=== PATIENT | male | born 1950 | race Caucasian/White ===

== ENCOUNTER 2024-12-22 08:58 | Day surgery (SDC) | payer MEDICARE, SELFPAY ==
--- OUTSIDE RECORDS SUMMARY | 2024-12-08 20:36 | XMS_ITS | Continuity of Care Document ---
Author Organization [facility] Address [address] [place] [address] Phone Care Team Providers Care Per Diem Physical Therapist Assistant Name Role Phone Yessenia Bayron DO Primary Care Provider Bayron Casas DO Attending Provider Zhen Vaz MD Attending Provider [phone] Care Teams Patient Care Team Team Status: Active Member Role Status Dates Zhen Vaz MD Specialist Active Bayron Casas DO Primary Care Provider Active Visit Care Team Team Status: Inactive Member Role Status Dates Bayron Casas DO Primary Care Provider Active Sta rt: October 06, 2024 End: October 06, 2024 Bayron Casas DO Attending Provider Active Start: October 06, 2024 End: October 06, 2024 Visit Care Team Team Status: Inactive Member Role Status Jj Casas DO Primary Care Provider Active Sta rt: October 13, 2024 End: October 13, 2024 Bayron Casas DO Attending Provider Active Start: October 13, 2024 End: October 13, 2024 Patient Care Team Team Status: Inactive Member Role Status Jj Casas DO Primary Care Provider Active Sta rt: December 08, 2024 End: December 08, 2024 Zhen Vaz MD Attending Provider Active St art: December 08, 2024 End: December 08, 2024 Chief Complaint and Reason for Visit Chief Complaint Admit Date Z12.5 I10 R73.9 E78.5 October 06, 2024 6:2 8am medicare wellness October 13, 2024 7:48a m R97.20 N42.32 N42.31 December 08, 2024 2:1 7pm Reason for Visit Admit Date Diabetes October 13, 2024 7:48a m Hyperlipidemia October 13, 2024 7:48a m Hypertension October 13, 2024 7:48a m Medicare annual wellness visit, subseque nt October 13, 2024 7:48am Screening for prostate cancer October 13, 2024 7:48am Allergies, Adverse Reactions, Alerts Allergen Type Severity Reaction Last Updated Verified Status No Known Allergies Allergy Unknown October 13, 2024 8:15am Yes Active Social History Smoking Status Status Start Date End Date Date of Observa tion Never smoked tobacco (finding) October 13, 2024 8:05am Observation Status Observation Response Date of Response Legal Sex Male (finding) Sex Assigned At Male 1950 Family History Relationship Condition Age at Onset Recorded Date/T chuy father Malignant neoplasm Unknown Unknown mother Unknown Problems Active Problems Medical Problem Onset Date Status Effusion, right knee Unknown Active Elevated PSA Unknown Active Medicare annual wellness visit, subsequent Unkno wn Active Screening for prostate cancer Unknown Ac tive Open wound of left hand Unknown Active Primary osteoarthritis of right knee Unknown Active Right knee buckling Unknown Active Diabetes Unknown Active Actinic keratosis Unknown Active Hyperglycemia Unknown Active Hyperlipidemia Unknown Active Right knee pain Unknown Active Osteoarthritis of left knee Unknown Acti ve Osteoarthritis of right knee Unknown Act marge Hypertension Unknown Active Inactive/Resolved Problems Medical Problem Onset Date Status Avulsion of finger tip Unknown Resolved Medications Medication Status Dose Units Route Directions Qty Days St art Date Stop Date End Date Instructions Adherence Amlodipine 5 mg tablet Discont inued 5 MG PO Daily 90 Decemb er 2023 2:16pm October 13, 2024 8:53a m Amlodipine 5 mg tablet Discont inued 5 MG PO Daily 2023 1:00am Dece isha 2023 2:21p m Oxycodone-A cetaminophe n (Percocet) 5-325 mg tablet Discont inued 1 TAB PO Every 8 hours as needed for pain 7 2 2023 2:38p m Ibuprofen 200 mg tablet Active 400 MG PO Every 6 hours as needed Mayuar y 2024 1:00am Unknown Amlodipine 5 mg tablet Active 5 MG PO Daily 90 October 13, 2024 8:52am Unknown Meloxicam 15 mg tablet Discont inued 15 MG PO daily 30 30 2025 1:00am October 13, 2024 8:16a m Diclofenac Sodium 1 % gel Active 2 GM TOPICA L .4-5 times a day as needed for knee pain 2024 1:00am Unknown Immunizations Immunization Event Date Not Given Reason Dose Number Nursing Faculty Lot Number Vaccine Information Statement (VIS) Detail Administration Location COVID-19 mRNA, Comirnaty (Pfizer) July 11, 2020 COVID-19 mRNA, Comirnaty (Pfizer) August 01, 2020 COVID-19 mRNA, Comirnaty (Pfizer) March 19, 2021 COVID-19 mRNA Bivalent Booster (Pfizer) February 26, 2022 COVID-19 (3DMGAME) [id number] 12Y and older May 20, 2023 Fluzone QIV High-Dose 65YR+ March 24, 2020 Fluzone QIV High-Dose 65YR+ May 20, 2023 Influenza vaccine, quadrivalent, adjuvanted April 18, 2021 Influenza vaccine, quadrivalent, adjuvanted March 11, 2022 Pneumococcal Conjugate Vaccine, 13 valent March 24, 2020 Pneumococcal Conjugate Vaccine, 13 valent April 11, 2019 Patient Refused Pneumococcal Polysacc. Vaccine, 23 valent April 11, 2019 Patient Refused Tetanus, Diphtheria, Pertussis (Tdap) June 27, 2023 [id number] [facility] Trivalent Influenza Vaccine March 24, 2020 Trivalent Influenza Vaccine April 18, 2021 Trivalent Influenza Vaccine March 11, 2022 Trivalent Influenza Vaccine April 11, 2019 Patient Refused Procedures Procedure Date Performed Status MR prostate wo/w con December 08, 2024 2:19pm acti ve Relevant Diagnostic Tests and/or Laboratory Data Laboratory Results Test Collection Date/Time Result Date/Time Result Interpretation Reference Range Result Comment Performing Site Corrected White Blood Count October 06, 2024 6:30am October 06, 2024 4:10pm 6.3 10*3/uL 4.1-10.5 [facility] [id number] [address] [facility] [address] Uncorrect ed WBC Count October 06, 2024 6:30am October 06, 2024 4:10pm 6.3 10*3/uL 4.1-10.5 [facility] [id number] [address] [facility] [address] Red Blood Count October 06, 2024 6:30am October 06, 2024 4:10pm 4.89 10*6/uL 3.90-5.60 [facility] [id number] [address] [facility] [address] Hemoglobi n October 06, 2024 6:30am October 06, 2024 4:10pm 15.4 g/dL 13.0-17.0 [facility] [id number] [address] [facility] [address] Hematocri t October 06, 2024 6:30am October 06, 2024 4:10pm 44.5 % 38.8-50.0 [facility] [id number] [address] [facility] [address] Mean Corpuscul ar Volume October 06, 2024 6:30am October 06, 2024 4:10pm 91.0 fL 83.5-101 [facility] [id number] [address] [id number] Mean Corpuscul ar Hemoglobi n October 06, 2024 6:30am October 06, 2024 4:10pm 31.5 pg 27.5-35.2 [facility] [id number] [address] [facility] [address] Mean Corpuscul ar Hemoglobi n Concent October 06, 2024 6:30am October 06, 2024 4:10pm 34.7 g/dL 32.5-35.6 [facility] [id number] [address] [facility] [address] Red Cell Distribut ion Width October 06, 2024 6:30am October 06, 2024 4:10pm 13.8 % 12.0-14.8 [facility] [id number] [address] [facility] [address] Platelet Count October 06, 2024 6:30am October 06, 2024 4:10pm 182 10*3/uL 150-450 [facility] [id number] [address] [facility] [address] Mean Platelet Volume October 06, 2024 6:30am October 06, 2024 4:10pm 9.6 fL 6.6-10.1 [facility] [id number] [address] [facility] [address] Neutrophi ls (%) (Auto) October 06, 2024 6:30am October 06, 2024 5:03pm N/A [facility] [id number] [address] [facility] [address] Lymphocyt es (%) (Auto) October 06, 2024 6:30am October 06, 2024 5:03pm N/A [facility] [id number] [address] [facility] [address] Monocytes (%) (Auto) October 06, 2024 6:30am October 06, 2024 5:03pm N/A [facility] [id number] [address] [facility] [address] Eosinophi ls (%) (Auto) October 06, 2024 6:30am October 06, 2024 5:03pm N/A [facility] [id number] [address] [facility] [address] Basophils (%) (Auto) October 06, 2024 6:30am October 06, 2024 5:03pm N/A [facility] [id number] [address] [facility] [address] Nucleated RBC Relative Count (auto) October 06, 2024 6:30am October 06, 2024 5:03pm N/A [facility] [id number] [address] [facility] [address] Neutrophi ls # (Auto) October 06, 2024 6:30am October 06, 2024 5:03pm N/A [facility] [id number] [address] [facility] [address] Lymphocyt es # (Auto) October 06, 2024 6:30am October 06, 2024 5:03pm N/A [facility] [id number] [address] [facility] [address] Monocytes # (Auto) October 06, 2024 6:30am October 06, 2024 5:03pm N/A [facility] [id number] [address] [facility] [address] Eosinophi ls # (Auto) October 06, 2024 6:30am October 06, 2024 5:03pm N/A [facility] [id number] [address] [facility] [address] Basophils # (Auto) October 06, 2024 6:30am October 06, 2024 5:03pm N/A [facility] [id number] [address] [facility] [address] Segmented Neutrophi ls October 06, 2024 6:30am October 06, 2024 5:03pm 56 % 50-70 [facility] [id number] [address] [facility] [address] Lymphocyt es % October 06, 2024 6:30am October 06, 2024 5:03pm 30 % 18-42 [facility] [id number] [address] [facility] [address] Monocytes % October 06, 2024 6:30am October 06, 2024 5:03pm 8 % 2-11 [facility] [id number] [address] [place] [address] Eosinophi ls % October 06, 2024 6:30am October 06, 2024 5:03pm 6 % Above high normal 1-3 [facility] [id number] [address] [facility] [address] Metamyelo cytes % October 06, 2024 6:30am October 06, 2024 5:03pm 1 % Above high normal 0-0 [facility] [id number] [address] [place] [address] Red Blood Cell Morpholog y October 06, 2024 6:30am October 06, 2024 5:03pm N/A [facility] [id number] [address] [facility] [address] Anisocyto sis October 06, 2024 6:30am October 06, 2024 5:03pm Slight [facility] [id number] [address] [facility] [address] Microcyto sis October 06, 2024 6:30am October 06, 2024 5:03pm Slight [facility] [id number] [address] [facility] [address] Crenated Cell October 06, 2024 6:30am October 06, 2024 5:03pm Slight [facility] [id number] [address] [place] [address] Platelet Estimate October 06, 2024 6:30am October 06, 2024 5:03pm Normal Normal [facility] [id number] [address] [place] [address] Giant Platelets October 06, 2024 6:30am October 06, 2024 5:03pm 2 /100{WB C} [facility] [id number] [address] [place], [place] [address] Platelet Morpholog y Comment October 06, 2024 6:30am October 06, 2024 5:03pm Normal Normal [facility] [id number] [address] [place], [place] [address] Glucose Level October 06, 2024 6:30am October 06, 2024 4:48pm 158 mg/dL Above high normal 70-100 ADA recommended reference rangeRandom Glucose Reference Range is dependent on time and content of last meal. Glucose of more than 200 mg/dL in a nonstressed, ambulatory subject supports the diagnosis of Diabetes Mellitus. [facility] [id number] [address] [place] [address] Blood Urea Nitrogen October 06, 2024 6:30am October 06, 2024 4:48pm 25 mg/dL 7-25 [facility] [id number] [address] [place], [place] [address] Creatinin e October 06, 2024 6:30am October 06, 2024 4:48pm 0.85 mg/dL 0.70-1.30 [facility] [id number] [address] [place], [place] [address] Estimated GFR (CKD-EPI) October 06, 2024 6:30am October 06, 2024 4:48pm > 60.0 mL/Min [facility] [id number] [address] [place], [place] [address] Sodium Level October 06, 2024 6:30am October 06, 2024 4:48pm 137 mmol/L 136-145 [facility] [id number] [address] [place], [place] [address] Potassium Level October 06, 2024 6:30am October 06, 2024 4:48pm 4.3 mmol/L 3.5-5.1 [facility] [id number] [address] [facility] [address] Chloride Level October 06, 2024 6:30am October 06, 2024 4:48pm 102 mmol/L 98-107 [facility] [id number] [address] [facility] [address] Carbon Dioxide Level October 06, 2024 6:30am October 06, 2024 4:48pm 27.2 mmol/L 21.0-31.0 [facility] [id number] [address] [facility] [address] Anion Gap October 06, 2024 6:30am October 06, 2024 4:48pm 12.1 mEq/L 6.0-15.0 [facility] [id number] [address] [id number] Calcium Level October 06, 2024 6:30am October 06, 2024 4:48pm 9.3 mg/dL 8.6-10.3 [facility] [id number] [address] [facility] [address] Total Protein October 06, 2024 6:30am October 06, 2024 4:48pm 6.7 g/dL 6.4-8.9 [facility] [id number] [address] [facility] [address] Albumin October 06, 2024 6:30am October 06, 2024 4:48pm 4.5 g/dL 3.5-5.7 [facility] [id number] [address] [facility] [address] Globulin October 06, 2024 6:30am October 06, 2024 4:48pm 2.2 g/dL [facility] [id number] [address] [facility] [address] Albumin/G lobulin Ratio October 06, 2024 6:30am October 06, 2024 4:48pm 2.0 [facility] [id number] [address] [place], [place] [address] Total Bilirubin October 06, 2024 6:30am October 06, 2024 4:48pm 0.6 mg/dL 0.3-1.0 [facility] [id number] [address] [facility] [address] Aspartate Amino Transf (AST/SGOT ) October 06, 2024 6:30am October 06, 2024 4:48pm 18 U/L 13-39 [facility] [id number] [address] [facility] [address] Alanine Aminotran sferase (ALT/SGPT ) October 06, 2024 6:30am October 06, 2024 4:48pm 22 U/L 7-52 [facility] [id number] [address] [place] [address] Alkaline Phosphata se October 06, 2024 6:30am October 06, 2024 4:48pm 72 U/L 34-104 [facility] [id number] [address] [place] [address] Cholester ol Level October 06, 2024 6:30am October 06, 2024 4:48pm 267 mg/dL Above high normal 140-200 Chol less than 200 mg/dl low riskChol 201-239 mg/dl borderline riskChol 240 mg/dl and greater high risk [facility] [id number] [address] [place] [address] HDL Cholester ol October 06, 2024 6:30am October 06, 2024 4:48pm 49 mg/dL 23-92 HDL CHOL ATP-III CLASSIFICATI ON Cardiovascul ar RiskHDL > or equal to 60 mg/dL LOWHDL < 40 mg/dL HIGH [facility] [id number] [address] [place] [address] Triglycer ides Level October 06, 2024 6:30am October 06, 2024 4:48pm 194 mg/dL Above high normal 0-149 TRIG ATP III CLASSIFICATI ONTRIG less than 150 mg/dL NormalTRIG 150-199 mg/dL Borderline highTRIG 200-500 mg/dL High TRIG greater than 500 mg/dL Very highStandard traceable to the Center for Disease Conrtrol and Prevention (CDC) test method. [facility] [id number] [address] [facility] [address] LDL Cholester ol, Calculate d October 06, 2024 6:30am October 06, 2024 4:48pm 179 mg/dL Above high normal 0-100 LDL ATP III CLASSIFICATI ONLDL less than 100 mg/dL OptimalLDL 100-129 mg/dL Near or above optimalLDL 130-159 mg/dL Borderline highLDL 160-189 mg/dL HighLDL greater than 189 mg/dL Very high [facility] [id number] [address] [place], [place] [address] VLDL Cholester ol October 06, 2024 6:30am October 06, 2024 4:48pm 38 mg/dL [facility] [id number] [address] [place], [place] [address] Cholester ol/HDL Ratio October 06, 2024 6:30am October 06, 2024 4:48pm 5.4 <5.0 [facility] [id number] [address] [place], [place] [address] Prostate Specific Antigen Screen October 06, 2024 6:30am October 06, 2024 5:23pm 6.130 ng/mL Above high normal 0.000-4.00 0 Serial tumor marker results determined by assays using different sign erector s or methods may not be comparable.[facility] Laboratory sign erector and method:BECKDonnie AN UNICEL DXI, CHEMILUMINES CENT IMMUNOASSAY. [facility] [id number] [address] [place], [place] [address] Thyroid Stimulati ng Hormone 3rd Gen October 06, 2024 6:30am October 06, 2024 5:11pm 3.56 u[iU]/m L 0.45-5.33 [facility] [id number] [address] [place], [place] [address] Pharmacy Creatinin e Clearance (Chem October 06, 2024 6:30am October 06, 2024 4:48pm N/A [facility] [id number] [address] [place], [place] [address] Hemoglobi n A1c October 06, 2024 6:30am October 07, 2024 11:10am 7.5 % Above high normal 4.3-5.6 Increased risk for diabetes: 5.7 - 6.4diabetes: >6.4glycemic control for adults with diabetes: <7.0 [facility] [id number] [address] [place], [place] [address] Estimated Average Glucose October 06, 2024 6:30am October 07, 2024 11:10am 169 mg/dL [facility] [id number] [address] [place], [place] [address] Bedside Creatinin e December 08, 2024 2:29pm December 08, 2024 2:31pm 0.8 mg/dL 0.6-1.3 ER/ESD physician is notified/fred wn all ISTAT results.Crit ical values may be confirmed by laboratory testing ifdeemed necessary by ER attending doctor. [facility] [id number] [address] [facility] [address] Bedside Estimated GFR (eGFR) December 08, 2024 2:29pm December 08, 2024 2:31pm > 60.0 [facility] [id number] [address] [facility] [address] Vital Signs Vital Reading Result Reference Range Collection Date/Time Height 72 [in_i] October 13, 2024 8:25am Weight 97.52 kg October 13, 2024 8:25am Heart Rate 70 /min 60-100 October 13, 2024 8:25am Respiratory rate 16 /min 12-24 October 13, 2 025 8:25am Oxygen saturation by Pulse oximetry 94 % 95-10 0 October 13, 2024 8:25am BP Systolic 150 mm[Hg] 100-140 October 13, 2024 8:28am BP Diastolic 80 mm[Hg] 60-100 October 13, 2024 8:28am BMI (Body Mass Index) 29.1 kg/m2 October 132024 8:25am Height 72 [in_i] December 07, 2024 8:03am Weight 102.05 kg December 07, 2024 8:03am Advance Directives Advance Directive Response Recorded Date/ Time Advance Directives No March 9:35am Insurance Providers Guarantor Kike Powers Address [address] [place] [phone] Contact Info. Home Phone: Payer Policy Id Subscriber's Name Subscriber Id Effectiv e Date Expiration Date [facility] [id number] Livier Powers [id number] Encounters Encounter Location(s) Arrival/Admit Date Discharge/Depart Date Provider(s) Departed Clinical -[facility] [place] October 06, 2024 6:28am October 06, 2024 6:29am Bayron Casas DO Departed Physician/Prov ider Office Visit -[facility] [place] October 13, 2024 7:48am October 13, 2024 8:56am Bayron Casas DO Departed Clinical -[facility] [place] December 08, 2024 2:17pm December 08, 2024 2:18pm Zhen Vaz MD Recent Diagnosis Onset Date Admit Date Diabetes Unknown October 13, 2024 7 :48am Hyperlipidemia Unknown October 13, 2024 7 :48am Hypertension Unknown October 13, 2024 7 :48am Medicare annual wellness visit, subsequent Unkno wn October 13, 2024 7:48am Screening for prostate cancer Unknown Ju 2024 7:48am Assessments Author Ksenia Blanco [facility] Authored October 13, 2024 8:29a m The above note written by JERI Madrid acting as human recorder, note dictated by Dr. Bayron Casas. Plan of Treatment Author Bayron Casas [facility] Authored October 13, 2024 9:21a m Personalized health advice w as given to the beneficiary to health education of preventative counseling services or programs aimed at reducing identified risk factors and improving self-management or community-based lifestyle interventions to reduce health risks and promote self-management and wellness,including physical activity and nutrition. A written plan for screenings was discussed, flu vaccination, routine lab studies ,eye exams, as well as risk factors for other medical problems. All preventative recommendations to include immunizations reviewed with patient today. Glucose is 158 with a hgb a1c of 7.5 .Discussion was has a normal hgb a1c is below 5.6 . Patient admits to eating ice cream every night. I once again recommend he start a medication to help bring these levels down. The patient has historically refused medication treatment and continues to refuse medication today. Dietary modification and exercise as tolerated recommended. PSA is elevated at 6.1 , patient encouraged to continue following with urologist ,pt states he is scheduled next week.A copy of his blood work provided. Blood work results reviewed with the patient. Blood count is normal with no signs of anemia or leukemia. Liver enzymes, kidney and thyroid functions are within normal range. Cholesterol levels are elevated with a total of 267, LDL is 179 and HDL is 49. Medication options discussed and recommended, once again the patient refuses medication treatment that could better control these readings as he states he feels fine. We did discuss cardiovascular risk factors to include the elevated cholesterol , hypertension and diabetes that could put him at risk for a stroke or heart attack. Patient voices understanding. Encouraged to work on dietary modification and exercise as tolerated. I did provide information regarding community outreach vascular screening and recommend he have these performed. Patient adamantly refused any treatment. Blood pressure finding is borderline elevated. 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 Normal heart rate and rhythm upon auscultation.Patient encouraged to monitor at home, continue Amlodipine as directed. We will continue to monitor. Future Tests Future scheduled test information is unavailable Pending Tests Test Name Ordered Date Scheduled Date MR prostate wo/w con December 08, 2024 2:19pm December 08, 2024 2:19pm Comprehensive Metabolic Panel October 13, 2024 8:5 3am 1 Years Future Visits Future appointment information is unavailable Referrals to Other Providers Referral information is unavailable Future Procedures Procedure Name Ordered Date Scheduled Date A1C with Estimated Average Glu October 13, 2024 8: 53am 1 Years Complete Blood Count Auto Diff October 13, 2024 8: 53am 1 Years Lipid Panel October 13, 2024 8:53am 1 Years MicroAlb Creat Ratio,U October 13, 2024 8:53am 1 Y ears PSA Screen (Yearly Only) October 13, 2024 8:53am 1 Years Thyroid Stimulating Hormone October 13, 2024 8:53a m 1 Years Future Medications Future medication information is unavailable Patient Instructions Patient instructions are unavailable
--- OUTSIDE RECORDS SUMMARY | 2024-12-22 09:06 | XMS_ITS | Patient Health Record ---
Author Organization [facility] Address [address] [place] [address] Care Team Providers Care Accounting Consultant Name Role Phone Bayron Casas Primary Care Provider Unavailabl e Reason For Referral No Information Immunizations Vaccine Route Administration Date Status Comme nts Pfizer Covid19 (12yr & up) Piute (0.3mL) IM Intramuscular 05/20/2023 Administered z2023 Fluzone, 65 y/o & Older, Quad HIGH DOSE PFS (0.7 mL Admin) IM Intramuscular 05/20/2023 Administered Plan Of Treatment No Information Insurance Providers Payer Name Payer Address Payer Phone Subscriber Number Group Number Insured Name Patient Relationship to Insured Coverage Start Date Coverage End Date [place] [address] [place] [phone] [id number] Kike Powers Self - patient is the insured [employer] SUPPLEMENT [address] [address] [place] [phone] [id number] Kike Powers Self - patient is the insured
[2024-12-22 09:18] VITALS: BP 182/81; PULSE 83; TEMP 35.9; O2SAT 97
[2024-12-22] MEDS: GENTAMICIN SULFATE 80 MG/2 ML VIAL 120 MG IM (09:23)
[2024-12-22] MEDS: LIDOCAINE 2% JELLY 20 ML UR (10:20)
[2024-12-22] MEDS: LIDOCAINE HCL 1% 100 MG/10 ML MDV INJ (10:21)
--- NOTE | 2024-12-22 10:38 | PM.URSON ---
Urology Surgery Operative Note Operative Note Procedure Date: 12/22/24 Time Out Performed: yes Pre-op Diagnosis: Elevated PSA and prostate MRI lesions Post-op Diagnosis: same as pre-op Procedures performed: 1. Transrectal MRI fusion prostate biopsies Anesthesia: local and other (Angy- prostatic block) Primary Surgeon: Zhen Vaz Complications: None Estimated blood loss (mL): 10 Findings: 2 areas of interest. Specimens: 3 biopsies from area of interest #1. 3 biopsies from area of interest #2. 6 mapped out biopsies from the left side and 6 from the right side Drains: None Indications for Procedures: This gentleman has an elevated PSA up to 6 and 2 areas of interest on his prostate MRI. He now presents for MRI fusion transrectal biopsies of the prostate. He has signed an informed consent after risks were explained. Some of these risks include bleeding, infection, urosepsis and anesthesia to name a few. Detailed description of Procedure: The patient was kept on the [facility] bed and brought into the operating room. He was rotated into the left lateral decubitus position. Timeout was done by all parties in the room. We all agreed upon the patient's identification and the planned procedures for this patient. I started by passing Betadine soaked stick sponges per rectum and swabbing the rectum a few times. I then passed 2% lidocaine gel per rectum. The [employer] ultrasound probe was then passed per rectum. Segmentation was then done so as to fuse the MRI images onto our live ultrasound. I then used 1% plain lidocaine and did a Angy- prostatic block in the usual fashion. I then identified the area of interest #1. I was able to target this and get 3 excellent biopsies from it. These were sent separately labeled area of interest #1. I then did a similar 3 biopsies from area of interest #2. These were also sent separately labeled area of interest #2. At this time I then did our standard mapped out biopsies. I started on the left side and took 2 from the base 2 from the mid zone and 2 from the apex. I then did a similar maneuver on the right side. We had 12 mapped out cores along with our 6 area of interest cores. The probe was then removed. He was then discharged to home.
== END 2024-12-22 10:55 | disposition home or self-care (01) ==
LOC: SURGOUT 09:01
PROVIDERS: PCP Family Medicine; Visit Provider Urology
PROC: (CPT 55700; principal; 2024-12-22 09:30)
DX: C61 Malignant neoplasm of prostate (principal); R97.20 Elevated prostate specific antigen [PSA]; I10 Essential (primary) hypertension; N42.9 Disorder of prostate, unspecified; N42.31 Prostatic intraepithelial neoplasia; Z80.42 Family history of malignant neoplasm of prostate; Z90.49 Acquired absence of other specified parts of digestive tract
CPT/HCPCS: 55700; J1580

== ENCOUNTER 2024-12-23 09:19 | Outpatient (OUT) | payer MEDICARE, SELFPAY ==
--- OUTSIDE RECORDS SUMMARY | 2024-12-23 09:22 | XMS_ITS | Patient Health Record ---
Author Organization [facility] Address [address] [place] [address] Care Team Providers Care Manager Account Management Name Role Phone Bayron Casas Primary Care Provider Unavailabl e Reason For Referral No Information Immunizations Vaccine Route Administration Date Status Comme nts Pfizer Covid19 (12yr & up) [place] (0.3mL) IM Intramuscular 05/20/2023 Administered z2023 Fluzone, 65 y/o & Older, Quad HIGH DOSE PFS (0.7 mL Admin) IM Intramuscular 05/20/2023 Administered Plan Of Treatment No Information Insurance Providers Payer Name Payer Address Payer Phone Subscriber Number Group Number Insured Name Patient Relationship to Insured Coverage Start Date Coverage End Date [place] [address] [place] [place] [address] [id number] Kike Powers Self - patient is the insured [employer] SUPPLEMENT [address] [address] [place] [address] [phone] [id number] Kike Powers Self - patient is the insured
== END 2024-12-23 09:20 | disposition home or self-care (01) ==
LOC: PST 09:19
PROVIDERS: PCP Family Medicine; Visit Provider Urology
DX: Z01.818 Encounter for other preprocedural examination (principal); R97.20 Elevated prostate specific antigen [PSA]